=== PATIENT | male | born 1990 | race Caucasian/White ===

== ENCOUNTER → 2017-07-24 | Emergency (ER) | payer SELFPAY ==
[~2017-07-24] VITALS: Ht 172.7 cm; Wt 65.8 kg
[2017-07-24 15:09] VITALS: BP 136/90
== END | disposition home or self-care (01) ==
LOC: ER 15:16
DX: Z02.89 Encounter for other administrative examinations (principal); F32.9 Major depressive disorder, single episode, unspecified
CPT/HCPCS: A4606; Z7610